=== PATIENT | male | born 1970 | race African-American/Black ===

== ENCOUNTER 2017-07-31 11:41 | Emergency (ER) | payer OTHER ==
[~2017-07-31 11:41] MED LIST: BACT800T5 PO; CEPH-460 PO; SERO100T PO
[2017-07-31 11:48] VITALS: BP 126/74; PULSE 82; RESP 16; TEMP 98.4; O2SAT 99
--- NOTE | 2017-07-31 11:58 | PD ---
HPI Chief Complaint: Laceration/Skin Injury Time Seen by Provider: 11:57 Travel History International Travel<30 days: No Contact w/Intl Traveler<30days: No Traveled to known affect area: No History of Present Illness HPI 46-year-old -[place] male presents emergency department with accidental laceration to the left third toe, status post dropping a knife. He is up-to- date on his tetanus. He has minimal pain. Bleeding is controlled with bandage applied by the patient prior to arrival. 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 Reported Meds & Prescriptions Reported Meds & Active Scripts Active Bactrim DS (Sulfamethoxazole-Trimethoprim) 800-160 Mg Tab 1 Tab PO BID Reported Seroquel (Quetiapine Fumarate) 100 Mg Tab 100 Mg PO DAILY Review of Systems Except as stated in HPI: all other systems reviewed are Neg General / Constitutional: No: Fever Eyes: No: Visual changes HENT: No: Headaches Cardiovascular: No: Chest Pain or Discomfort Respiratory: No: Shortness of Breath Gastrointestinal: No: Abdominal Pain Genitourinary: No: Dysuria Musculoskeletal: No: Pain Skin: Positive Lesions (See history of present illness), No Rash Neurologic: No: Weakness Psychiatric: No: Depression Endocrine: No: Polydipsia Hematologic/Lymphatic: No: Easy Bruising Physical Exam Narrative GENERAL: Patient appears in no obvious distress. SKIN: Warm and dry. Normal color. Normal turgor. Patient has a apparent superficial laceration to the left third dorsal lateral toe. Bleeding currently controlled on exam per HEAD: Atraumatic. Normocephalic. EYES: Pupils equal and round. No scleral icterus. No injection or drainage. ENT: No nasal bleeding or discharge. Mucous membranes pink and moist. Pharynx is clear. Airways patent. NECK: Trachea midline. Supple and nontender CARDIOVASCULAR: Regular rate and rhythm. RESPIRATORY: No accessory muscle use. Clear to auscultation. Breath sounds equal bilaterally. MUSCULOSKELETAL: Extremities without clubbing, cyanosis, or edema. No obvious deformities. No obvious signs of tendon injury in the left foot. NEUROLOGICAL: Awake and alert. No obvious cranial nerve deficits. Motor grossly within normal limits. Five out of 5 muscle strength in the arms and legs. Normal speech. PSYCHIATRIC: Appropriate mood and affect; insight and judgment normal. Data Data Last Documented VS Vital Signs Date Time Temp Pulse Resp B/P (MAP) Pulse Ox O2 Delivery O2 Flow Rate FiO2 07/31/17 11:48 98.4 82 16 126/74 (91) 99 Orders Orders Splint Or Brace Apply/Monitor (07/31/17 12:33) Wound Care (07/31/17 12:33) MDM Medical Decision Making Medical Screen Exam Complete: Yes Emergency Medical Condition: Yes Differential Diagnosis Left foot laceration. Possible need for closure. Risk of infection. Narrative Course Left foot is soaked for 10 minutes and 10% Betadine saline solution. Wound is able to be closed with Dermabond without difficulty. Bulky bandage is placed to protect the area and patient is placed in a postop shoe. Patient will be given Bactrim DS twice daily for 7 days. Patient is to follow-up if symptoms worsen as needed Procedures Procedure Narrative LACERATION LOCATION: Left distal dorsal lateral third toe LENGTH: 1 cm NUMBER OF STITCHES/CHAVEZ: Dermabond REPAIR: The area of the laceration was prepped with Betadine and sterilely draped. The wound was copiously irrigated and explored without evidence of foreign body, tendon injury or neurovascular injury. The wound was closed using Dermabond. This was a single layer repair. A sterile dressing was applied. The patient was advised to keep the dressing clean and dry. Patient tolerated the procedure well. Diagnosis Primary Impression: Laceration of third toe of left foot Qualified Codes: S91.115A - Laceration without foreign body of left lesser toe (s) without damage to nail, initial encounter Patient Instructions: General Instructions, Skin Adhesive Care (ED) Additional Instructions: Wound is able to be closed with Dermabond without difficulty. Bulky bandage is placed to protect the area and patient is placed in a postop shoe. Patient will be given Bactrim DS twice daily for 7 days. Patient is to follow-up if symptoms worsen as needed Med/Other Pt SpecificInfo: Prescription(s) given Scripts Sulfamethoxazole-Trimethoprim (Bactrim DS) 800-160 Mg Tab 1 TAB PO BID for Infection, #14 TAB 0 Refills Prov: Eloy Sinha MD 07/31/17 Disposition: 01 DISCHARGE HOME Condition: Stable Esau Piper Jul 31, 2017 11:58
[2017-07-31] MEDS ORDERED: BACT800T5 PO (12:34)
== END 2017-07-31 13:09 | disposition home or self-care (01) ==
LOC: NEPD 11:41
DX: S91.115A Laceration without foreign body of left lesser toe(s) without damage to nail, initial encounter (principal); W26.0XXA Contact with knife, initial encounter
CPT/HCPCS: 12001; 99283; L3260